=== PATIENT | female | born 1960 | race Caucasian/White ===

== ENCOUNTER 2024-09-22 20:47 | Emergency (ER) | payer BC, SELFPAY ==
--- NOTE | ~2024-09-22 | XR_ITS ---
XR hand RT 2V Ordering provider: Terry Mckinley MD History: . right side fall . Comparison: None. FINDINGS: BONES: No acute fracture or dislocation. Erosive changes seen in the distal ulna. Clinical correlatio n advised. JOINT SPACES: Normal. SOFT TISSUES: Normal. IMPRESSION: No acute osseous abnormality right hand. Reviewed, dictated and finalized at location A.
--- NOTE | ~2024-09-22 | XR_ITS ---
XR forearm RT 2V Ordering provider: Terry Mckinley MD History: . right side fall . Comparison: None. FINDINGS: BONES: No acute fracture or dislocation. JOINT SPACES: Normal. SOFT TISSUES: Normal. IMPRESSION: No acute osseous abnormality right forearm. Reviewed, dictated and finalized at location A.
--- NOTE | ~2024-09-22 | XR_ITS ---
XR humerus RT Ordering provider: Terry Mckinley MD History: . right side fall . Comparison: None. FINDINGS: BONES: No acute fracture or dislocation. JOINT SPACES: Normal. SOFT TISSUES: Normal. IMPRESSION: No acute osseous abnormality right humerus. Reviewed, dictated and finalized at location A.
[2024-09-22 20:52] VITALS: BP 158/100; PULSE 93; RESP 20; TEMP 36.6; O2SAT 100
--- OUTSIDE RECORDS SUMMARY | 2024-09-22 21:50 | XMS_ITS | Patient Health Record ---
Author Organization [facility] Billing Info Address [address] [place] [address] [place] [address] Care Team Providers Care Automobile Mechanic Assistant Name Role Phone DEA REEVES Primary Care Provider [phone] BLADE ELEAZAR Unavailable [phone] SKYE BETY Unavailable [phone] Allergies No Known Allergies Results Component Value Reference Range Notes Hemoglobin A1C(P-HA1C) Reviewed date:01/18/2024 08:07:57 AM Interpretation:Free Text Performing Lab: Notes/Report: Test performed by [facility] [address] , [address], [place] [address] Nile Sosa MD, Inserting Press Operator CLIA: [id number] Average Glucose is calculated using the equation AG = (28.7 x HgbA1c) - 46.7 based on the guidelines established by the ADA. Hemoglobin A1C 5.4 <5.7 % The following HbA1c ranges recommended by the [place] Diabetes Association (ADA) may be used as an aid in the diagnosis of diabetes mellitus. HA1c Suggested Diagnosis >=6.5% Diabetic 5.7% - 6.4% Pre-Diabetic <5.7% Non-Diabetic Estimated Average Glucose 108 CBC With Platelet No Differe ntial(P-CBC) Reviewed date:01/18/2024 08:07:57 AM Interpretation:Free Text Performing Lab: Notes/Report: Test performed by [facility] [address] , [address], [place] [address] Nile Sosa MD, Inserting Press Operator CLIA: [id number] WBC 5.3 3.8-11.5 K/uL Red Blood Cell Count (RBC) 5.04 3.60-5.30 M/mm 3 Hemoglobin (Hgb) 14.6 11.5-15.5 gm/dL Hematocrit (HCT) 45.5 35.2-46.4 % MCV 90.3 79.0-99.0 fL MCH 29.0 26.9-35.0 pg MCHC 32.1 30.4-34.8 g/dL RDW 38.5 38.6-53.8 fL Platelet Count 332 137-397 K/cumm Lipid Panel(P-LIPID) Reviewed date:01/18/2024 08:07:57 AM Interpretation:Free Text Performing Lab: Notes/Report: Test performed by [employer] [address] [place] [address] , [address], [place] [address] Nile Sosa MD, Inserting Press Operator CLIA: [id number] Cholesterol 209 <200 mg/dL Triglycerides 75 <150 mg/dL HDL Cholesterol 73 >39 mg/dL Cholesterol / HDL Ratio 2.86 0.00-4.44 Ratio Non-HDL Cholesterol 136 <130 mg/dL LDL Cholesterol (Calculation) 121 <130 mg/dL LDL Cholesterol Levels* Less than 100 mg/dL Optimal 100 to 129 mg/dL Near Optimal/ Above Optimal 130 to 159 mg/dL Borderline High 160 to 189 mg/dL High 190 mg/dL and above Very High * Categories as recommended by the 2004 ATPIII guidelines LDL/HDL Ratio 1.7 <3.3 Ratio LDL Cholesterol Patient History Test Date: 04/06/2022 LDL Results: 134 Units: mg/dL % Change: +2% Test Date: 01/11/2023 LDL Results: 93 Units: mg/dL % Change: -30% Test Date: 01/13/2024 LDL Results: 121 Units: mg/dL % Change: +30% TSH(P-TSH) Reviewed date:01/18/2024 08:07:57 AM Interpretation:Free Text Performing Lab: Notes/Report: Test performed by [facility] [address] [place], [place] [address] , [address] , [place] [address] Nile Sosa MD, Inserting Press Operator CLIA: [id number] TSH 1.84 0.43-5.25 mU/L Comprehensive Metabolic Pane l(P-CMP) Reviewed date:01/18/2024 08:07:57 AM Interpretation:Free Text Performing Lab: Notes/Report: Test performed by [facility] [address] [place], [place] [address] [address] , [address], [place] [address] Nile Sosa MD, Inserting Press Operator CLIA: [id number] Sodium 140 135-145 mmol/L Potassium 4.8 3.5-5.3 mmol/L Chloride 102 97-108 mmol/L CO2 26 22-32 mmol/L Glucose 85 65-99 mg/dL BUN 14 8-23 mg/dL Creatinine 0.80 0.50-1.00 mg/dL Calcium 10.4 8.6-10.4 mg/dL eGFR by Creatinine 83 >59 mL/min/1.73m2 Protein 7.2 6.0-8.3 g/dL Albumin 4.8 3.5-5.3 g/dL Alkaline Phosphatase 72 35-121 IU/L ALT (SGPT) 12 <5-47 IU/L AST (SGOT) 14 <5-40 IU/L Bilirubin, Total 0.4 <0.2-1.2 mg/dL A/G Ratio 2.0 1.1-2.5 Vitamin D 25-Hydroxy(P-VD25H ) Reviewed date:01/18/2024 08:07:58 AM Interpretation:Free Text Performing Lab: Notes/Report: Test performed by [facility] [address] , [place] [address] Nile Sosa MD, Inserting Press Operator CLIA: [id number] Vitamin D 25-Hydroxy 32.9 30.0-100.0 ng/mL Interpretation of Vitamin D 25 OH: < 20 ng/mL - Deficiency 20 - 29 ng/mL - Insufficiency 30 - 100 ng/mL - Sufficiency > 100 ng/mL - Super-therapeutic- toxicity may occur above this level. Clinical correlation required. Mammogram (QM112) Reviewed date:01/13/2024 09:19:48 AM Interpretation: Performing Lab: Notes/Report: Reason For Referral No Information Medications Medication SIG (Take, Route, Frequency, Duration) Notes Start Date End Date Status Triamcinolone Acetonide 0.1 % 1 application Externally Twice a day for 10 days 01/11/2023 Not-Taki ng HydrOXYzine HCl 25 MG TAKE 1 TABLET ONCE DAILY ATBEDTIME NEEDED for 90 Active Rosuvastatin Calcium 5 MG TAKE 1 TABLET ONCE DAILY for 90 days Active Meloxicam 7.5 MG 1 tablet as needed for pain Orally Once a day for 90 days please take with food and water 07/08/2023 Active Azithromycin 250 MG 2 tablets on day one followed by 1 tablet daily x4 days Orally As directed for 5 day(s) 05/20/2022 Not-Taking Amoxicillin-Pot Clavulanate 875-125 MG 1 tablet Orally every 12 hrs for 7 day(s) 05/20/2022 Not-Taking Shingrix 50 MCG/0.5ML as directed Intramuscular Once for 1 day 01/07/2022 Not-Taking Amlodipine Besylate 2.5 MG TAKE 1 TABLET DAILY for 90 Active Immunizations Vaccine Route Administration Date Status Comme nts TDAP (BOOSTRIX) IM Intramuscular 01/07/2022 [place] [id number] zFLU 4V (FLUZONE QUAD), 3 YRS+, NO PRES - ALL PAYORS IM Intramuscular 03/01/2018 Administered [id number] zFLU 4V (FLUARIX QUAD), 6 MO+, NO PRES - ALL PAYORS IM Intramuscular 04/06/2022 Administered [id number] Social History Tobacco Use: Social History Observation Description Date Details (start date - stop date) Never Smoker NA - NA Tobacco Status: Question Answer Notes Patient is a never smoker Section Notes: From [facility]. [place]. [facility] [place] [facility], program integrity, looking for fraud 10/2011 from [facility]. Kids: Daughter (1997), Daughter (1992), Son (1989) From [facility]. [place] [facility] [facility] [place] [facility], program integrity, looking for fraud 10/2011 from [facility]. Kids: Daughter (1997), Daughter (1992), Son (1989) From [facility]. [place] [facility] [place] [facility], program integrity, looking for fraud 10/2011 from [facility]. Kids: Daughter (1997), Daughter (1992), Son (1989) From [facility]. [place] [facility] [facility] [place] [facility], program integrity, looking for fraud 10/2011 from [facility]. Kids: Daughter (1997), Daughter (1992), Son (1989) From [facility]. [place] [facility] [facility] [place] [facility], program integrity, looking for fraud 10/2011 from [facility]. Kids: Daughter (1997), Daughter (1992), Son (1989) From [facility]. [place] [facility] [facility] [place] [facility], [place] integrity, looking for fraud 10/2011 from [facility]. Kids: Daughter (1997), Daughter (1992), Son (1989) From [facility]. [place] [facility] [facility] [place] [facility], [place], looking for fraud 10/2011 from [facility]. Kids: Daughter (1997), Daughter (1992), Son (1989) Problems Problem Type SNOMED Code ICD Code Onset Dates Problem Status W/U Status Risk Notes Problem 728921716 Prediabetes (R73.03) Active confirmed Problem 20619754 Vitamin D defici ency (E55.9) Active confirmed Problem 48377119 Essential hypert ension (I10) Active confirmed Problem 36632582 Hyperlipidemia L DL goal <100 (E78.5) Active confirmed Problem 097310486 Psychophysiologi mary insomnia (F51.04) Active confirmed Vital Signs Heart Rate 86 /min 01/13/2024 Blood pressure diastolic 64 mm Hg 01/13/2024 Oximetry 99 01/13/2024 Height 67 in 01/13/2024 Blood pressure systolic 136 mm Hg 01/13/2024 Weight 143 lbs 01/13/2024 BMI 22.39 kg/m2 01/13/2024 Encounters Encounter Location Date Provider Diagnosis [id number] [facility] [address] [facility] [address] [place], [place] [id number] 11/03/2023 BETY CHEUNG Psychophysiological insomnia F51.04 [id number] [facility] [address] [place] [address] [place], [place] [id number] 03/09/2024 DEA REEVES Hyperlipidemia LDL g oal <100 E78.5 [id number] [facility] [address] [place] [address] [place], [place] [id number] 01/14/2024 DEA REEVES [id number] [facility] [address] [facility] [address] [place], [place] [id number] 01/22/2024 DEA REEVES Essential hypertensi on I10 [id number] [place] [address] [place] [address] [place], [place] [id number] 01/13/2024 DEA REEVES Adult general medica l exam Z00.00 ; Vitamin D deficiency E55.9 ; Screening mammogram for breast cancer Z12.31 and Postmenopausal Z78.0 Assessments Encounter Date Diagnosis (ICD Code) Assessment Notes Treatment Notes Treatment Clinical Notes Section Notes 01/13/2024 Adult general medica l exam (ICD-10 - Z00.00) Healthy diet and exercise encouraged. Will check basic labs. We encouraged to wear sunscreen. 01/13/2024 Vitamin D deficiency (ICD-10 - E55.9) Will check vitamin-D levels 11/03/2023 Psychophysiological insomnia (ICD-10 - F51.04) 01/22/2024 Essential hypertensi on (ICD-10 - I10) 03/09/2024 Hyperlipidemia LDL g oal <100 (ICD-10 - E78.5) 01/13/2024 Screening mammogram for breast cancer (ICD-10 - Z12.31) had mammogram completed August 22 of this year. 01/13/2024 Postmenopausal (ICD- 10 - Z78.0) Will check bone density scan due to vitamin-D deficiency and postmenopausa l. Plan Of Treatment Pending Test Test Name Order Date XRAY- DXA BONE DENSITY AXIAL (86925)(CINDI T-BONDE) 01/13/2024 XRAY- HAND RIGHT 3 + V (25149)(CENT-HAND R) 07/08/2023 REMOVAL CERUMEN, IMPACTED, 1 OR BOTH EAR S (65500) IH 05/20/2022 Next Appt Details Provider Name:DEA Salazar, 01/18/2025 08:30:00 AM, [address] [facility], [place], [place], [id number], Insurance Providers Payer Name Payer Address Payer Phone Subscriber Number Group Number Insured Name Patient Relationship to Insured Coverage Start Date Coverage End Date [id number] S 1 [facility] [address] [place], [place] [id number] Ignacia Bahena Self - patient is the insured 6 Medical (General) History Medical History History ICD Code essential hypertension h/o intestinal malrotation hyperlipidemia - on statin since Mar 2 prediabetes vitamin D deficiency Surgical History Surgery Date(Month/Year) laparascopic procedure-fix intestinal ma lrotation 2009 tubal ligation 1997 1989 appendectomy 1981 tonsillectomy 1980
--- OUTSIDE RECORDS SUMMARY | 2024-09-22 21:50 | XMS_ITS ---
Author Organization [facility] Billing Info Address [address] [place] [address] Care Team Providers Care Dial Printer Name Role Phone DEA REEVES Primary Care Provider BLADE ELEAZARYun Quiñones [phone] REASON FOR VISIT Bone Density Encounters Encounter Location Date Provider Diagnosis [id number] [facility] [address] [id number] 01/14/2024 DEA REEVES Plan Of Treatment Next Appt Details Provider Name:DEA Salazar, 01/18/2025 08:30:00 AM, [address] [facility] [address], [place], [place], [id number], Progress Notes * Ignacia FAJARDODOB: (63 yo F)Acc No.[id number]:01/14/2024 Patient: Hue SANDIENatacha ANaaliyah Dunne :1960 A ge:63 Y S ex:Female Address:[address] [place] [id number] Subjective: * Chief Complaints: * B one Density * Medical History: * Surgical History: * Hospitalization/Major Diagno stic Procedure: * Medications: Objective: * Vitals: * Physical Examination: Assessment: Plan: * Treatment: * Procedure Codes: * true * Date: Generated for Printi ng/Faxing/eTransmitting on: 0 09/22/2024 09:50 PM CDT
--- OUTSIDE RECORDS SUMMARY | 2024-09-22 21:51 | XMS_ITS | Continuity of Care Document ---
Author Organization [facility]. If a dditional information is needed, contact Health Information Management at [phone] Address [address] [place] [address] Phone Care Team Providers Care Service Associate Name Role Phone Unavailable Unavailable Unavailable Unavailable Unavailable Unavailable Unavailable Unavailable Unavailable Problems Vitamin D deficiency Comments:Vitamin D deficienc y Hyperlipidemia Comments:Hyperlipidemia LDL goal <100 Psychophysiologic insomnia Comments:Psychophysiological insomnia Essential hypertension Comments:Essential hypertens ion Prediabetes Comments:Prediabetes Allergies and Adverse Reactions Medications meloxicam 7.5 MG Oral Tablet ;7.5 MG Orally Once a day, 1 tablet as needed for pain Quantity:90 Jose Armando James. Start:08-Jul-2023 Comments:7.5 MG Orally Once a day, 1 tablet as needed for pain Triamcinolone Acetonide 0.00 1 MG/MG Topical Ointment;0.1 % Externally Twice a day, 1 application Quantity:15 Jose Armando Spanny W. Start:11-Jan-2023 Comments:0.1 % Externally Twice a day, 1 application hydrOXYzine Hydrochloride 25 MG Oral Tablet;25 MG Orally Once a day, 1 tablet at bedtime as needed Quantity:90 Jose Armando Spanny W. Start:11-Jan-2023 Comments:25 MG Orally Once a day, 1 tablet at bedtime as needed Azithromycin;250 MG Orally A s directed, 2 tablets on day one followed by 1 tablet daily x4 days Quantity:6 Suárez Dea W. Start:20-May-2022 Comments:250 MG Orally As directed, 2 tablets on day one followed by 1 tablet daily x4 days Amoxicillin 875 MG / Clavula marychuy 125 MG Oral Tablet;875-125 MG Orally every 12 hrs, 1 tablet Quantity:14 Suárez Dea W. Start:20-May-2022 Comments:875-125 MG Orally every 12 hrs, 1 tablet *SHINGRIX (ZOSTER VACCINE RECOMBINANT, ADJUVANTED) (No Interaction Check);50 MCG/0.5ML Intramuscular Once, as directed Quantity:1 Suárez Dea W. Start:07-Jan-2022 Comments:50 MCG/0.5ML Intramuscular Once, as directed {21 (methylPREDNISolone 4 MG Oral Tablet [Medrol]) } Pack [Medrol Dosepak];4 MG Orally daily, as directed Quantity:1 Suárez Dea W. Start:28-Sep-2019 Comments:4 MG Orally daily, as directed Clobetasol Propionate 0.5 MG /ML Topical Cream;0.05 % Externally Twice a day, 1 application Suárez Dea W. Start:28-Sep-2019 Comments:0.05 % Externally Twice a day, 1 application Valtrex (as valACYclovir hydrochloride) 1000 MG Oral Tablet;1 GM Orally tid, 1 tablet Quantity:21 Suárez Dea W. Start:13-Feb-2019 Comments:1 GM Orally tid, 1 tablet predniSONE 20 MG Oral Tablet ;20 MG Orally BID, 1 tablet Quantity:10 Jose Armando Spanny W. Start:13-Feb-2019 Comments:20 MG Orally BID, 1 tablet Oseltamivir 75 MG Oral Capsu le [Tamiflu];75 MG Orally Twice a day, 1 capsule Quantity:10 Jose Armando Spanny W. Start:12-Aug-2016 Status:Inactive Comments:75 MG Orally Twice a day, 1 capsule Ibuprofen 200 MG Oral Tablet [Advil];200 MG Orally every 6 hrs, 1 tablet as needed Jose Armando Spanny W. Status:Inactive Comments:200 MG Orally every 6 hrs, 1 tablet as needed Norvasc (as amLODIPine besyl ate) 2.5 MG Oral Tablet;2.5 MG Orally Once a day, 1 tablet Quantity:90 Jose Armando Spanny W. Status:Inactive Comments:2.5 MG Orally Once a day, 1 tablet amLODIPine 2.5 MG Oral Table t;2.5 MG Orally Daily, 1 tablet Quantity:90 Jose Armando Ray W. Comments:2.5 MG Orally Daily , 1 tablet Rosuvastatin Calcium;5 MG , TAKE 1 TABLET ONCE DAILY Quantity:90 Jose Armando Ray W. Comments:5 MG , TAKE 1 TABLE T ONCE DAILY Social History Smoking Status Never smoked tobacco Results Hemoglobin A1C(P-HA1C) Ordered On:13-Jan-2024 Co mments:DEA REEVES 01/17/2024 08:22:55 PM CDT > your labs show that your total cholesterol is minimally elevated at 209, for this continue with a low fat diet and exercise. Your other labs are all good and acceptable.Test performed by [facility], [facility] Glucose is calculated using the equation AG = (28.7 x HgbA1c) - 46.16859 [facility] [address], [place], [place] [address] on the guidelines established by the ADA.Nile Sosa MD, Laboratory DirectorCLIA: [id number] HbA1c HPLC (Bld) [Ma ss fraction]5.4% Range:0-5.7% Comments:The following HbA1c ranges recommended by the [place] Diabetes Association (ADA) may be used as an aid in the diagnosis of diabetes mellitus. HA1c Suggested Diagnosis >=6.5% Diabetic 5.7% - 6.4% Pre-Diabetic <5.7% Non-Diabetic CBC With Platelet No Differential(P-CBC) Ordered On:13-Jan-2024 Comments:DEA REEVES 01/17/2024 08:22:55 PM CDT > your labs show that your total cholesterol is minimally elevated at 209, for this continue with a low fat diet and exercise. Your other labs are all good and acceptable.Test performed by [facility], [id number] [facility] [address], [place], [place] [address]Ionrtrbrain Sosa MD, Laboratory DirectorCLIA: [id number] RBC Auto (Bld) [#/Vol]5.04{M/mm3} Range:3.6{M/mm3}-5.3{M/mm3} Erythrocyte distribu tion width (RBC) [Entitic vol]38.5fL(Low) Range:38.6fL-53.8fL Hematocrit Auto (Bld ) [Volume fraction]45.5% Range:35.2%-46.4% WBC Auto (Bld) [#/Vol]5.3K/uL Range:3.8K/uL-11.5K/uL MCH Auto (RBC) [Enti tic mass]29.0pg Range:26.9pg-35pg MCHC Auto (RBC) [Mass/Vol]32.1g/dL Range:30.4g/dL-34.8g/dL MCV Auto (RBC) [Enti tic vol]90.3fL Range:79fL-99fL Platelets Auto (Bld) [#/Vol]332{k/cumm} Range:137{k/cumm}-397{k/cumm} Hemoglobin (Bld) [Mass/Vol]14.6g/dL Range:11.5g/dL-15.5g/dL Lipid Panel(P-LIPID) Ordered On:13-Jan-2024 Comm ents:DEA REEVES Dileep 01/17/2024 08:22:55 PM CDT > your labs show that your total cholesterol is minimally elevated at 209, for this continue with a low fat diet and exercise. Your other labs are all good and acceptable.Test performed by [facility], [id number] [facility] , [address], [place], [place] [address]Tumqhgfrancisco javier Sosa MD, Laboratory DirectorCLIA: [id number] Cholesterol in LDL C alc [Mass/Vol]121mg/dL Range:0-130mg/dL Comments:LDL Cholesterol Levels* Less than 100 mg/dL Optimal 100 to 129 mg/dL Near Optimal/ Above Optimal 130 to 159 mg/dL Borderline High 160 to 189 mg/dL High 190 mg/dL and above Very High * Categories as recommended by the 2004 ATPIII guidelines Cholesterol non HDL [Mass/Vol]136mg/dL(High) Range:0-130mg/dL Triglyceride Calc [Mass/Vol]75mg/dL Range:0-150mg/dL Cholesterol [Mass/Vol]209mg/dL(High) Range:0-200mg/dL Cholesterol.total/Ch olestero l in HDL [Mass ratio]2.86{ratio} Range:0{ratio}-4.44{ratio} Cholesterol in LDL/Cholesterol in HDL [Mass ratio]1.7{ratio} Range:0-3.3{ratio} Comments: LDL Cholesterol Patient History Test Date: 04/06/2022LDL Results: 134Units: mg/dL% Change: +2% Test Date: 01/11/2023LDL Results: 93Units: mg/dL% Change: -30% Test Date: 01/13/2024LDL Results: 121Units: mg/dL% Change: +30% Cholesterol in HDL [Mass/Vol]73mg/dL Range:39mg/dL-0 TSH(P-TSH) Ordered On:13-Jan-2024 Comments: DEA REEVES 01/17/2024 08:22:55 PM CDT > your labs show that your total cholesterol is minimally elevated at 209, for this continue with a low fat diet and exercise. Your other labs are all good and acceptable.Test performed by [facility], [id number] [facility] , [address], [place], [place] [address]IlcjdqNlie Sosa MD, Laboratory DirectorCLIA: [id number] TSH DL <= 0.05 mIU/L Qn1.84mU/L Range:0.43mU/L-5.25mU/L Comprehensive Metabolic Panel(P-CMP) Ordered On:13-Jan-2024 Comments:DEA REEVES 01/17/2024 08:22:55 PM CDT > your labs show that your total cholesterol is minimally elevated at 209, for this continue with a low fat diet and exercise. Your other labs are all good and acceptable.Test performed by [facility], [id number] [facility] , [address], [place], [place] [address]Vcoylwfrancisco javier Sosa MD, Laboratory DirectorCLIA: [id number] Albumin [Mass/Vol]4.8g/dL Range: 3.5g/dL-5.3g/dL Creatinine [Mass/Vol]0.80mg/dL Range:0.5mg/dL-1mg/dL ALP [Catalytic activity/Vol]72[IU]/L Range:35[IU]/L-121[IU]/L Urea nitrogen [Mass/Vol]14mg/dL Range:8mg/dL-23mg/dL Albumin/Globulin [Ma ss ratio]2.0 Range:1.1-2.5 GFR/1.73 sq M.predic royce Creatinine-based formula (CKD-EPI 2020) (S/P/Bld) [Vol rate/Area]83mL/min/{1.73_m2} Range:59mL/min/{1.73_m2}-0 CO2 [Moles/Vol]26mmol/L Range:22 mmol/L-32mmol/L Bilirubin [Mass/Vol]0.4mg/dL Ran ge:<0.2-1.2 mg/dL Protein [Mass/Vol]7.2g/dL Range: 6g/dL-8.3g/dL Sodium [Moles/Vol]140mmol/L Rang e:135mmol/L-145mmol/L Chloride [Moles/Vol]102mmol/L Range:97mmol/L-108mmol/L Potassium [Moles/Vol]4.8mmol/L Range:3.5mmol/L-5.3mmol/L ALT No additional P- 5'-P [Catalytic activity/Vol]12[IU]/L Range:<5-47 IU/L Glucose [Mass/Vol]85mg/dL Range: 65mg/dL-99mg/dL AST [Catalytic activity/Vol]14[IU]/L Range:<5-40 IU/L Calcium [Mass/Vol]10.4mg/dL Rang e:8.6mg/dL-10.4mg/dL Vitamin D 25-Hydroxy(P-VD25H) Ordered On:13-Jan-2024 Comments:DEA REEVES 01/17/2024 08:22:55 PM CDT > your labs show that your total cholesterol is minimally elevated at 209, for this continue with a low fat diet and exercise. Your other labs are all good and acceptable.Test performed by [facility], [id number] [facility] , [facility], [place], [place] [address]LwinxbNile Sosa MD, Laboratory DirectorCLIA: [id number] 25-hydroxyvitamin D3 [Mass/Vol]32.9ng/mL Range:30ng/mL-100ng/mL Comments:Interpretation of Vitamin D 25 [place]: < 20 ng/mL - Deficiency 20 - 29 ng/mL - Insufficiency 30 - 100 ng/mL - Sufficiency > 100 ng/mL - Super-therapeutic- toxicity may occur above this level. Clinical correlation required. Vital Signs 13-Jan-2024 08:45 BMI22.39{index_val} BP Bhgdsowu107xs[Hg] BP Ppwiaqcrm32ms[Hg] Pulse86/min O2 SAT99 Nahyfh77np Aeuwkl796.18cm Htqkge128hb Knvwpv95.86kg Encounters Ambulatory Encounter Reason:E55.9 VITAMIN D DEFICIENCY, UNSPECIFIED 13-Jan-2024 09:16 Josue Falk MD (Attending) [facility] Ambulatory Encounter Diagnosis:Patient encounter status,Vitamin D deficiency,Patient encounter status,Postmenopausal state 13-Jan-2024 08:[id number] 08:45 [id number] [facility] Comments:Adult general medical exam,Vitamin D deficiency,Screening mammogram for breast cancer,Postmenopausal Ambulatory 01-Jul-2015 13:06 Seven Hurley MD (Attending) [facility]
--- OUTSIDE RECORDS SUMMARY | 2024-09-22 21:51 | XMS_ITS ---
Author Organization [facility] Billing Info Address [address] [place] [address] Care Team Providers Care Assistant Farm Operations Manager Name Role Phone DEA REEVES Primary Care Provider ELEAZAR MURGUIA [phone] REASON FOR VISIT Refill Medications Medication SIG (Take, Route, Frequency, Duration) Notes Start Date End Date Status Rosuvastatin Calcium 5 MG TAKE 1 TABLET ONCE DAILY for 90 days Active Encounters Encounter Location Date Provider Diagnosis [id number] [facility] [address] [facility] [address] [place], [place] [id number] 03/09/2024 DEA REEVES Hyperlipidemia LDL g oal <100 E78.5 Assessments Encounter Date Diagnosis (ICD Code) Assessment Notes Treatment Notes Treatment Clinical Notes Section Notes 03/09/2024 Hyperlipidemia LDL goal <100 (ICD-10 - E78.5) Plan Of Treatment Medication Medication Name Sig Start Date Stop Date Notes Rosuvastatin Calcium 5 MG TAKE 1 TABLET ONCE DAILY for 90 days Next Appt Details Provider Name:DEA Salazar, 01/18/2025 08:30:00 AM, [address] [facility] [address], [place], [place], [id number], Progress Notes * Ignacia FAJARDODOB: (64 yo F)Acc No.[id number]:03/09/2024 Patient: Hue Ignacia CHEUNG :1960 A ge:64 Y S ex:Female Address:[address] [place] [address] [place] [address] * Refills Refill Rosuvastatin Calcium Tablet, 5 MG, 90 Tablet, TAKE 1 TABLET ONCE DAILY, 90 days, Refills=1 * true * Date: Generated for Kaylin hurtado/Pedro/Micheline on: 0 09/22/2024 09:50 PM CDT
--- OUTSIDE RECORDS SUMMARY | 2024-09-22 21:51 | XMS_ITS ---
Author Organization [facility] Albert greer Billing Info Address [address] [place] [id number] Care Team Providers Care Skilled Laborer Name Role Phone DEA REEVES Primary Care Provider [phone] ELEAZARYun Quiñones [phone] REASON FOR VISIT Refill amlodypine Medications Medication SIG (Take, Route, Frequency, Duration) Notes Start Date End Date Status Amlodipine Besylate 2.5 MG 1 tablet Oral ly Daily for 90 days Active Encounters Encounter Location Date Provider Diagnosis [id number] [facility] [address] [facility] [address] [place], [place] [id number] 01/22/2024 DEA REEVES Essential hypertensi on I10 Assessments Encounter Date Diagnosis (ICD Code) Assessment Notes Treatment Notes Treatment Clinical Notes Section Notes 01/22/2024 Essential hypertension (ICD-10 - I10) Plan Of Treatment Medication Medication Name Sig Start Date Stop Date Notes Amlodipine Besylate 2.5 MG 1 tablet Oral ly Daily for 90 days Next Appt Details Provider Name:DEA Salazar, 01/18/2025 08:30:00 AM, [address] [facility] [address], [place], [place], [id number], Progress Notes * Ignacia FAJARDODOB: (63 yo F)Acc No.[id number]:01/22/2024 Patient: Hue Ignacia CHEUNG :1960 A ge:63 Y S ex:Female Address:[address] [place] [id number] * Refills Refill Amlodipine Besylate Tablet, 2.5 MG, Orally, 90 Tablet, 1 tablet, Daily, 90 days, Refills=1 * true * Date: Generated for Kaylin hurtado/Pedro/Micheline on: 0 09/22/2024 09:50 PM CDT
--- NOTE | 2024-09-22 22:48 | ED_ITS ---
HPI - General Adult General Chief complaint: Extremity Injury, Upper Stated complaint: fall, right arm Time Seen by Provider: 09/22/24 21:27 History of Present Illness HPI narrative: This is a 64-year-old female presenting after a ground level fall. Patient tripped in her mother's kitchen and fell landing her right arm. She did not strike her head. She has pain diffusely from shoulder all the way to her hand. She has not had any weakness. No other injuries. Related Data Allergies Allergy/AdvReac Type Severity Reaction Status Date / Time No Known Allergies Allergy Verified 09/22/24 20:48 Exam Narrative: APPEARANCE: No apparent distress. Head: atraumatic. EYES: EOMI, NOSE: Atraumatic NECK: Trachea midline RESPIRATORY: No increased rate of breathing CARDIOVASCULAR: RRR, ABDOMINAL: Non-distended MUSCULOSKELETAl: Focal exam of the right upper extremity no obvious deformity bruising. No focal tenderness. Minimal pain with active or passive motion the shoulder elbow wrist. Compartments are soft. Cap refills less than 2 seconds. Pulses +2 NEURO: Alert. Moving 4/4 extremities SKIN:: Warm, dry. Normal color PSYCHIATRIC: Normal affect Course Vital Signs Vital signs: Vital Signs Temperature 97.9 F 09/22/24 20:52 Pulse Rate 93 09/22/24 20:52 Respiratory Rate 20 09/22/24 20:52 Blood Pressure 158/100 H 09/22/24 20:52 Pulse Oximetry 100 09/22/24 20:52 Temperature 97.9 F 09/22/24 20:52 Pulse Rate 93 09/22/24 20:52 Respiratory Rate 20 09/22/24 20:52 Blood Pressure 158/100 H 09/22/24 20:52 Pulse Oximetry 100 09/22/24 20:52 Medical Decision Making [facility] Narrative Medical decision making narrative: -Course: 64-year-old female presenting after ground level fall. X-rays negative for bony injury. Physical exam is unremarkable. She will be discharged conservative course of NSAIDs. Follow up with primary care physician. Given return precautions -DDX includes but is not limited to: Soft tissue injury, bony injury Vital Signs Vital Signs: Vital Signs Temperature 97.9 F 09/22/24 20:52 Pulse Rate 93 09/22/24 20:52 Respiratory Rate 20 09/22/24 20:52 Blood Pressure 158/100 H 09/22/24 20:52 Pulse Oximetry 100 09/22/24 20:52 Temperature 97.9 F 09/22/24 20:52 Pulse Rate 93 09/22/24 20:52 Respiratory Rate 09/22/24 20:52 Blood Pressure 158/100 H 09/22/24 20:52 Pulse Oximetry 100 09/22/24 20:52 Discharge Plan Discharge Clinical Impression: Arm pain Patient Disposition: Home Condition: Stable Instructions: Antibiotic Form, Arm Pain (ED) Additional Instructions: You were seen in the emergency department for arm pain. Your x-rays did not show any broken bones. Please use [id number] Motrin Tylenol as needed for pain. Please follow-up with your primary care physician in 1 week as needed. If you develop severe pain, weakness your arm or any new or worsening symptoms please return to the ED. Patient Language: Luxembourgish Follow-up/Referrals: PHYSICIAN NOT ON STAFF,NONSTAFF [Primary Care Provider] -
== END 2024-09-22 22:59 | disposition home or self-care (01) ==
PROVIDERS: Emergency Provider Emergency Medicine
DX: M79.601 Pain in right arm (principal); W18.30XA Fall on same level, unspecified, initial encounter
CPT/HCPCS: 73060; 73090; 73120; 99284